=== PATIENT | female | born 1975 | race Two or more races ===

== ENCOUNTER 2018-05-23 16:05 | Emergency (ER) | payer OTHER ==
[~2018-05-23] VITALS: Ht 160 cm; Wt 104.3 kg
[2018-05-23] MEDS ORDERED: IV NORMAL SALINE 1000ML BAG 1,000 ML IV ONE (16:45)
[2018-05-23] MEDS ORDERED: METOCLOPRAMIDE HCL 10 MG/2 ML VIAL. IV ONE (16:45)
[2018-05-23] MEDS ORDERED: diphenhydrAMINE 50 MG/ML VIAL IVP ONE ×2 (16:45→17:45)
--- NOTE | 2018-05-23 16:54 | PHYS DOC ---
Past Medical History Past Medical History: No Pertinent History Past Surgical History: No Surgical History Alcohol Use: None Drug Use: None Adult General Chief Complaint Chief Complaint: HEADACHE HPI HPI 42-year-old female presents to ER via POV with complaints of sudden onset of headache located in forehead and top of head. Pt reports pain has been gradually worsening since onset. Pt reports she had 1 episode of vomiting when pain worsened. Pt currently rates pain at 10/10 denying any OTC meds prior to arrival to ER. Pt reports she was cleaning when QUINTANILLA started denying being in an enclosed area or using bleach products. Pt denies injury, falls, or recent illness. Pt reports she has had some eye pain denying dizziness, lightheadedness , or confusion. Pt reports she had some pressure in her ears denies pain. Pt denies floaters/auras. Pt denies past hx of headaches. Pt reports she ate breakfast but no other food intake today. She reports her appetite has been NL. She denies urinary sxs, fever/chills, CP, or palpitations. Pt reports she will occasionally take aspirin 325mg for pain but doesn't take everyday and denies taking today. LMP ended last Tuesday denies concerns for . Review of Systems Review of Systems Constitutional: Denies fever or chills. Denies confusion Eyes: Denies change in visual acuity, redness HENT: Denies nasal congestion or sore throat. Reports bilat. eye pain when they are opened- pain eases with closing eyes. Denies photosensitivity. Reports bilat. ear pressure Respiratory: Denies cough or shortness of breath [] Cardiovascular: Denies CP/palpitations GI: Denies abdominal pain, bloody stools or diarrhea. Reports intermittent nausea w/increased pain and 1 episode of vomiting : Denies dysuria or hematuria [] Musculoskeletal: Denies back pain or joint pain [] Integument: Denies rash or skin lesions [] Neurologic: Denies focal weakness or sensory changes. Denies dizziness/ lightheadedness. Reports headache All other systems were reviewed and found to be within normal limits, except as documented in this note. Current Medications Current Medications Current Medications Medications (Trade) Dose Ordered Sig/Gina Start Time Stop Time Status Last Admin Dose Admin Acetaminophen (Tylenol) 1,000 mg 1X ONCE 05/23/18 18:15 9/25/18 18:16 DC 05/23/18 18:26 1,000 MG Diphenhydramine HCl (Benadryl) 12.5 mg 1X ONCE 05/23/18 17:45 05/23/18 17:47 DC 05/23/18 18:26 12.5 MG Info (CONTRAST GIVEN -- Rx MONITORING) 1 each PRN DAILY PRN 05/23/18 19:15 05/23/18 21:52 DC Iohexol (Omnipaque 300 Mg/ml) 100 ml 1X ONCE 05/23/18 19:15 05/23/18 19:16 DC 05/23/18 19:27 100 ML Lidocaine HCl (Xylocaine-Mpf 1% 2ml Vial) 6 ml 1X ONCE 05/23/18 18:15 05/23/18 18:16 DC Metoclopramide HCl (Reglan Vial) 10 mg 1X ONCE 05/23/18 16:45 05/23/18 16:46 DC 05/23/18 17:13 10 MG Sodium Chloride 1,000 ml @ 1,000 mls/hr 1X ONCE 05/23/18 16:45 05/23/18 17:44 DC 05/23/18 17:13 1,000 MLS/HR Allergies Allergies Allergies Coded Allergies Type Severity Reaction Last Updated Verified Penicillins Allergy Intermediate Unknown 05/23/18 Yes Physical Exam Physical Exam Constitutional: Well developed, well nourished, no acute distress, non-toxic appearance. Clear speech HENT: Normocephalic, atraumatic, bilateral ears normal, mucous membranes pink/ moist, no oral exudates, nose normal. [] Eyes: 3mm PERRLA, EOMI- no pain with eye movement, no nystagmus, conjunctiva normal, no discharge. [] Neck: Normal range of motion, no tenderness, supple, no gross adenopathy. No nuchal rigidity. Cardiovascular:Heart tachycardic rate/rhythm, no murmur [] Lungs & Thorax: Bilateral breath sounds clear to auscultation. Resp. equal/ nonlabored Abdomen: Bowel sounds normal, soft/nondistended, no tenderness, no masses, no pulsatile masses. [] Skin: Warm, dry, no erythema, no rash. [] Back: No tenderness, no CVA tenderness. [] Extremities: No tenderness, no cyanosis, no clubbing, ROM intact, no edema. [] Neurologic: Alert and oriented X 3, normal motor function, normal sensory function, no focal deficits noted. [] Psychologic: Affect normal, judgement normal, mood normal. [] 1920: rectal exam done for occult specimen- no gross blood on exam, skin NL, no external/internal hemorrhoids, +rectal tone Current Patient Data Vital Signs Vital Signs Date Time Temp Pulse Resp B/P (MAP) Pulse Ox O2 Delivery O2 Flow Rate FiO2 05/23/18 21:00 97 20 97 05/23/18 16:07 98.9 188/111 (136) Room Air 98.9 Lab Values Laboratory Tests Test 05/23/18 16:50 05/23/18 16:55 05/23/18 17:00 05/23/18 20:00 Urine Collection Type Unknown Urine Color Yellow Urine Clarity Clear Urine pH 5.5 Urine Specific [place] 1.020 Urine Protein 30 mg/dL (NEG-TRACE) Urine Glucose (UA) Negative mg/dL (NEG) Urine Ketones (Stick) Trace mg/dL (NEG) Urine Blood Negative (NEG) Urine Nitrite Negative (NEG) Urine Bilirubin Negative (NEG) Urine Urobilinogen Dipstick 0.2 mg/dL (0.2 mg/dL) Urine Leukocyte Esterase Moderate (NEG) Urine RBC 0 /HPF (0-2) Urine WBC 1-4 /HPF (0-4) Urine Squamous Epithelial Cells Mod /LPF Urine Bacteria Moderate /HPF (0-FEW) POC Urine HCG, Qualitative Hcg negative (Negative) White Blood Count 12.9 x10^3/uL (4.0-11.0) H Red Blood Count 5.61 x10^6/uL (3.50-5.40) H Hemoglobin 7.5 g/dL (12.0-15.5) L Hematocrit 27.3 % (36.0-47.0) L Mean Corpuscular Volume 49 fL (79-100) L Mean Corpuscular Hemoglobin 13 pg (25-35) L Mean Corpuscular Hemoglobin Concent 27 g/dL (31-37) L Red Cell Distribution Width 22.8 % (11.5-14.5) H Platelet Count 375 x10^3/uL (140-400) Neutrophils (%) (Auto) 85 % (31-73) H Lymphocytes (%) (Auto) 11 % (24-48) L Monocytes (%) (Auto) 3 % (0-9) Eosinophils (%) (Auto) 0 % (0-3) Basophils (%) (Auto) 1 % (0-3) Neutrophils # (Auto) 10.9 x10^3uL (1.8-7.7) H Lymphocytes # (Auto) 1.5 x10^3/uL (1.0-4.8) Monocytes # (Auto) 0.4 x10^3/uL (0.0-1.1) Eosinophils # (Auto) 0.0 x10^3/uL (0.0-0.7) Basophils # (Auto) 0.1 x10^3/uL (0.0-0.2) Platelet Estimate Adequate (ADEQUATE) Hypochromasia Marked Poikilocytosis Slight Anisocytosis Mod Microcytosis Marked Tear Drop Cells Occ Ovalocytes Few Schistocytes Occ Sodium Level 137 mmol/L (136-145) Potassium Level 3.3 mmol/L (3.5-5.1) L Chloride Level 103 mmol/L (98-107) Carbon Dioxide Level 24 mmol/L (21-32) Anion Gap 10 (6-14) Blood Urea Nitrogen 10 mg/dL (7-20) Creatinine 0.9 mg/dL (0.6-1.0) Estimated GFR (Cockcroft-Gault) 69.0 Glucose Level 104 mg/dL (70-99) H Calcium Level 8.9 mg/dL (8.5-10.1) Stool Occult Blood Negative (NEG) Laboratory Tests 05/23/18 17:00 Laboratory Tests 05/23/18 17:00 Microbiology 05/23/18 Urine Culture - Final, Complete 05/23/18 Urine Culture Result 1 (JUNG) - Final, Complete EKG EKG [] Radiology/Procedures Radiology/Procedures PROCEDURE: CT HEAD WO CONTRAST Exam performed: CT scan of the head without contrast. Date of Service: 05/23/2018. Comparison: None available. Clinical History: Headache. Technique: Helical acquisitions are obtained from the foramen magnum to the vertex without intravenous administration of contrast. Findings: The ventricles are midline without evidence of dilatation. Normal duvall-white differentiation is maintained. There is no extra axial fluid collection, intraparenchymal hemorrhage or mass lesion. The visualized portions of the orbits, paranasal sinuses and the mastoid air cells appear clear. The calvarium is intact. Impression: 1. No acute intracranial process detected. PQRS Compliance Statement: One or more of the following individualized dose reduction techniques were utilized for this examination: 1. Automated exposure control 2. Adjustment of the mA and/or kV according to patient size 3. Use of iterative reconstruction technique Electronically signed by: Madiha Katz MD (05/23/2018 5:40 PM) [facility] DICTATED and SIGNED BY: MADIHA KATZ MD DATE: 05/23/18 1739 PROCEDURE: CT ANGIOGRAPHY HEAD AND NECK CTA of neck and CTA [place] dated 05/19/2018. Comparison: [CT head without contrast from earlier today] Clinical Indication: Headache, suspected aneurysm. Technical factors: Routine CTA of the neck and [place] was performed after the bolus administration of 75 cc of Omnipaque 300. Sagittal and coronal MIP images were obtained and reviewed. Study was post processed at a reformatted 3-D workstation. Findings: The contrast bolus is adequate. Aortic Arch: The aortic arch anatomy is standard. Left subclavian artery: [Normal origin and course]. Left vertebral artery:: [Normal origin from the left subclavian artery with normal intraforaminal and intradural course]. Left carotid artery: [Normal origin from the aortic arch. Normal common carotid artery bifurcation and normal internal carotid artery] Innominate artery: [Normal origin from the aortic arch with bifurcation into right subclavian and right common carotid artery]. Right subclavian artery:: [Normal course and caliber, no focal stenosis or aneurysm]. Right vertebral artery: [Normal origin from the right subclavian artery with normal intraforaminal and intravertebral course]. Right Carotid Artery: [Normal origin and course, normal carotid bifurcation, internal carotid artery appears normal in course and caliber. No focal stenosis]. [place]: [Both distal internal carotid arteries and its bifurcation appears normal. Normal A1 and M1 segments are seen. No focal stenosis or aneurysm are identified. Dominant right vertebral artery. The left vertebral artery appears to taper after its intradural course and gives off trajectories. The right vertebral artery continues as the basilar artery. Normal basilar artery bifurcation into bilateral posterior cerebral arteries. No focal stenosis or aneurysm seen. Bilateral posterior communicating arteries are normal. No abnormal enhancing lesion is seen in the brain. The orbits appear normal. Mucoperiosteal thickening involving bilateral maxillary sinuses. No definite abnormality seen within the soft tissues of the neck. No masses or lymphadenopathy seen. The lung apices are clear Impression CTA Neck: [Essentially unremarkable CT angiogram of the carotids. Anatomical variations as outlined above. ] Impression CTA [place]: [1. Essentially unremarkable CT angiogram [place]. Note: Stenosis calculations for CT, MR and conventional angiography are based upon determination of the distal ICA diameter in accordance with the NASCET methodology. Stenosis calculations for doppler studies are derived from validated velocity criteria which are known to correlate with NASCET methodology of determining stenosis. RS Compliance Statement: One or more of the following individualized dose reduction techniques were utilized for this examination: 1. Automated exposure control 2. Adjustment of the mA and/or kV according to patient size 3. Use of iterative reconstruction technique Electronically signed by: Madiha Katz MD (05/23/2018 7:53 PM) [facility] DICTATED and SIGNED BY: MADIHA KATZ MD DATE: 05/23/181924 Course & Med Decision Making Course & Med Decision Making Pertinent Labs and Imaging studies reviewed. (See chart for details) 1735: Pt reports some improvement in headache following txs received. She remains A&Ox3 with no focal neuro deficits and in no visible distress on re- eval. BP 158/79 HR 98. Labs/CT pending 1809: discussed pt's case with Dr. Preciado who is in to evaluate pt. 18:20 Patient seen by me. The patient stated she had sudden onset today At 1400 hrs. at 10/10 severity no photophobia and neck pain. She received head CT scan imaging 3 hours and 20 minutes after onset headache which was normal. Currently headache is 7/10 severity she has no nuchal rigidity she appears in no distress no photophobia and no weakness or numbness. 18:24 The case was discussed with Dr. Gonzalez who recommends CTA head and neck to rule out aneurysm. If negative patient can be followed as an outpatient. 1832: BP 147/70 HR 98 pt is in no visible distress remains A&Ox3 without focal neuro deficits. She reports headache has improved- continues to deny neck pain/ stiffness. 1920: with translation phone discussed test results with pt- head CT/CTA neg. for acute findings- pt had H&H of 7.5/37.3 so discussed plans for iron and need for f/u with PCP to re-eval levels. Pt had WBCs 12.9 no left shift possibly d/t stress. Other labs unremarkable. UA with trace ketones neg. nitrates/blood and moderate leuks with 1-4 WBCs on micro with moderate bacteria. HCG neg. 2045: Discussed pt's case and plan of care with Dr. Preciado who reviewed pt's case and imaging. Pt will be discharged home with Rx for iron with education on anemia and need for f/u for re-evaluation. Pt advised on need for f/u with PCP and neurology in next 2-3 days for re-evaluation sooner with any concerns. Provided pt with community clinics/physicians for f/u. At this time pt is in no visible distress she reports QUINTANILLA significantly improved. She denies dizziness, eye pain, nausea, or neck pain. Pt is sitting on side of bed and was ambulatory at bedside with steady gait- unassisted. Translation phone used for discussion on test results and plan of care/discharge plans. Dragon Disclaimer Dragon Disclaimer This electronic medical record was generated, in whole or in part, using a voice recognition dictation system. Departure Departure Impression: Primary Impression: Headache Additional Impression: Anemia Disposition: 01 HOME, SELF-CARE Condition: STABLE Referrals: NO PCP (PCP) Patient Instructions: Anemia, Nonspecific-Brief, General Headache Without Cause Additional Instructions: So the cause of your headache is unknown you should follow-up with neurology for re-evaluation in next 2-3 days. Your blood count was low and this will need to be rechecked by your primary doctor in next 3-5 days. You are being provided with a prescription for iron tablets- this can sometimes cause constipation. You can take over the counter Miralax as directed for stool softner. Drink plenty of water. Tylenol as needed for pain- avoid aspirin products. Your blood pressure was elevated initially and improved when your headache improved- you need to monitor your blood pressure and follow-up with primary doctor for re-evaluation. Scripts Ferrous Sulfate (FERROUS SULFATE) 325 Mg Tablet 1 TAB PO DAILY, #30 TAB 0 Refills Prov: MAYA CASTAÑEDA APRN 05/23/18 Attending Co-Sign Attending Co-Sign The patient was seen by me and interviewed as well as examined at the bedside. From my exam and gestalt of patient, I doubt SAH. Case discussed with Dr. Montero and resulting CTA head and neck was unremarkable. No evidence of aneurysm. The [facility] chart was reviewed. The case was discussed with the MLP. I agreed with the plan of care. Problem Qualifiers MAYA CASTAÑEDA APRN May 23, 2018 16:54 HECTOR PRECIADO MD May 23, 2018 18:27
[2018-05-23 17:28] LABS: BASO # 0.1 x10^3/uL (0.0-0.2); BASO % 1 % (0-3); EOS % 0 % (0-3); HEMATOCRIT 27.3 % (36.0-47.0); HEMOGLOBIN 7.5 g/dL (12.0-15.5); LYMPH # 1.5 x10^3/uL (1.0-4.8); LYMPH % 11 % (24-48); MEAN CORPUSCULAR HEMOGLOBIN 13 pg (25-35); MEAN CORPUSCULAR HGB CONC 27 g/dL (31-37); MEAN CORPUSCULAR VOLUME 49 fL (79-100); MONO # 0.4 x10^3/uL (0.0-1.1); MONO % 3 % (0-9); NEUT # 10.9 x10^3uL (1.8-7.7); NEUT % 85 % (31-73); PLATELET COUNT 375 x10^3/uL (140-400); RED BLOOD COUNT 5.61 x10^6/uL (3.50-5.40); RED CELL DISTRIBUTION WIDTH 22.8 % (11.5-14.5); WHITE BLOOD COUNT 12.9 x10^3/uL (4.0-11.0)
[2018-05-23 17:39] LABS: CALCIUM 8.9 mg/dL (8.5-10.1); CREATININE 0.9 mg/dL (0.6-1.0); POTASSIUM 3.3 mmol/L (3.5-5.1)
--- NOTE | 2018-05-23 17:44 | RAD ---
Exam performed: CT scan of the head without contrast. Date of Service: 05/23/2018. Comparison: None available. Clinical History: Headache. Technique: Helical acquisitions are obtained from the foramen magnum to the vertex without intravenous administration of contrast. Findings: The ventricles are midline without evidence of dilatation. Normal duvall-white differentiation is maintained. There is no extra axial fluid collection, intraparenchymal hemorrhage or mass lesion. The visualized portions of the orbits, paranasal sinuses and the mastoid air cells appear clear. The calvarium is intact. Impression: 1. No acute intracranial process detected. PQRS Compliance Statement: One or more of the following individualized dose reduction techniques were utilized for this examination: 1. Automated exposure control 2. Adjustment of the mA and/or kV according to patient size 3. Use of iterative reconstruction technique Electronically signed by: Madiha Katz MD (05/23/2018 5:40 PM) [facility]
[2018-05-23 17:57] LABS: HYPOCHROMIA MARKED; PLT ESTIMATE ADEQUATE (ADEQUATE)
[2018-05-23 17:58] LABS: ANISOCYTOSIS MOD; MICROCYTOSIS MARKED; OVALOCYTES FEW; POIKILOCYTOSIS SLIGHT; SCHISTOCYTES OCC; TEAR DROP CELLS OCC
[2018-05-23] MEDS ORDERED: ACETAMINOPHEN 500 MG TABLET PO ONE (18:15)
[2018-05-23] MEDS ORDERED: LIDOCAINE 1% PF 2 ML VIAL. INJ ONE (18:15)
[2018-05-23] MEDS ORDERED: CONTRAST GIVEN. MC PRN (19:15)
[2018-05-23] MEDS ORDERED: IOHEXOL 300 MG/ML 100ML VIAL. IV ONE (19:15)
--- NOTE | 2018-05-23 19:56 | RAD ---
CTA of neck and CTA [place] dated 05/19/2018. Comparison: [CT head without contrast from earlier today] Clinical Indication: Headache, suspected aneurysm. Technical factors: Routine CTA of the neck and [place] was performed after the bolus administration of 75 cc of Omnipaque 300. Sagittal and coronal MIP images were obtained and reviewed. Study was post processed at a reformatted 3-D workstation. Findings: The contrast bolus is adequate. Aortic Arch: The aortic arch anatomy is standard. Left subclavian artery: [Normal origin and course]. Left vertebral artery:: [Normal origin from the left subclavian artery with normal intraforaminal and intradural course]. Left carotid artery: [Normal origin from the aortic arch. Normal common carotid artery bifurcation and normal internal carotid artery] Innominate artery: [Normal origin from the aortic arch with bifurcation into right subclavian and right common carotid artery]. Right subclavian artery:: [Normal course and caliber, no focal stenosis or aneurysm]. Right vertebral artery: [Normal origin from the right subclavian artery with normal intraforaminal and intravertebral course]. Right Carotid Artery: [Normal origin and course, normal carotid bifurcation, internal carotid artery appears normal in course and caliber. No focal stenosis]. [place]: [Both distal internal carotid arteries and its bifurcation appears normal. Normal A1 and M1 segments are seen. No focal stenosis or aneurysm are identified. Dominant right vertebral artery. The left vertebral artery appears to taper after its intradural course and gives off trajectories. The right vertebral artery continues as the basilar artery. Normal basilar artery bifurcation into bilateral posterior cerebral arteries. No focal stenosis or aneurysm seen. Bilateral posterior communicating arteries are normal. No abnormal enhancing lesion is seen in the brain. The orbits appear normal. Mucoperiosteal thickening involving bilateral maxillary sinuses. No definite abnormality seen within the soft tissues of the neck. No masses or lymphadenopathy seen. The lung apices are clear Impression CTA Neck: [Essentially unremarkable CT angiogram of the carotids. Anatomical variations as outlined above. ] Impression CTA [place]: [1. Essentially unremarkable CT angiogram [place]. Note: Stenosis calculations for CT, MR and conventional angiography are based upon determination of the distal ICA diameter in accordance with the NASCET methodology. Stenosis calculations for doppler studies are derived from validated velocity criteria which are known to correlate with NASCET methodology of determining stenosis. PQRS Compliance Statement: One or more of the following individualized dose reduction techniques were utilized for this examination: 1. Automated exposure control 2. Adjustment of the mA and/or kV according to patient size 3. Use of iterative reconstruction technique Electronically signed by: Madiha Katz MD (05/23/2018 7:53 PM) [facility]
[2018-05-23 19:58] LABS: BILIRUBIN,URINE NEGATIVE (NEG); CLARITY,URINE CLEAR; COLOR,URINE YELLOW; NITRITE,URINE NEGATIVE (NEG); PH,URINE 5.5; PROTEIN,URINE 30 mg/dL (NEG-TRACE); UROBILINOGEN,URINE 0.2 mg/dL (0.2 mg/dL)
[2018-05-23 20:07] LABS: BACTERIA,URINE MODERATE /HPF (0-FEW); RBC,URINE 0 /HPF (0-2); SQUAMOUS EPITHELIAL CELL,UR MOD /LPF
[2018-05-23 20:28] LABS: FECAL OB PT NEGATIVE (NEG)
[2018-05-23 21:00] VITALS: BP 148/100
[2018-05-23] MEDS ORDERED: FERR325T14 PO (21:01)
== END 2018-05-23 21:52 | disposition home or self-care (01) ==
LOC: ER 16:05
DX: R51 Headache (principal); R11.2 Nausea with vomiting, unspecified; H57.13 Ocular pain, bilateral; Z88.0 Allergy status to penicillin
CPT/HCPCS: 36415; 70450; 70496; 70498; 80048; 81001; 81025; 82274; 85025; 87086; 96361; 96374; 96375; 96376; 99285; J1200; J2765; J7030; Q9967

== ENCOUNTER 2021-08-21 12:30 | Inpatient (IN) | payer MEDICAID, OTHER ==
[~2021-08-21] VITALS: Ht 162.6 cm; Wt 100.0 kg
[~2021-08-21 12:30] MED LIST: FERR325T14 PO
[2021-08-21] MEDS ORDERED: IV NORMAL SALINE 1000ML BAG 1,000 ML IV ONE (13:45)
[2021-08-21] MEDS ORDERED: ACETAMINOPHEN 500 MG TABLET PO ONE (13:45)
--- NOTE | 2021-08-21 13:47 | PHYS DOC ---
Past Medical History Past Medical History: No Pertinent History Past Surgical History: No Surgical History Smoking Status: Never Smoker Alcohol Use: None Drug Use: None General Adult EDM: Chief Complaint: COUGH HPI: HPI: Patient is a 45-year-old female presenting via POV for shortness of breath. Her and significant other present with generalized URI symptoms. Patient started several days after her significant others, approximately 10 days ago. Nothing known makes better or worse. She reports ongoing nasal congestion, rhinorrhea, dry nonproductive cough and chest pain that often radiates to her back. This is been ongoing and worsening since onset prompting her to come in for evaluation today. She states she has no known medical issues, no immunocompromising conditions, takes no medications specifically no blood thinners daily. She did not receive the COVID-19 vaccinations Review of Systems: Review of Systems: Fourteen body systems of review of systems have been reviewed. See HPI for pertinent positives and negative responses, other wolf all other systems are negative, non-pertinent or non-contributory Heart Score: C/O Chest Pain: No HEART Score for Chest Pain: HEART Score for Chest Pain Response (Comments) Value History Moderately Suspicious 1 ECG Nonspecific Repolarizatio 1 Age < 45 0 Risk Factors 1 or 2 Risk Factors 1 Troponin < Normal Limit 0 Total 3 Risk Factors: Risk Factors: DM, Current or recent (<one month) smoker, HTN, HLP, family history of CAD, obesity. Risk Scores: Score 0 - 3: 2.5% MACE over next 6 weeks - Discharge Home Score 4 - 6: 20.3% MACE over next 6 weeks - Admit for Clinical Observation Score 7 - 10: 72.7% MACE over next 6 weeks - Early Invasive Strategies Current Medications: Current Medications Medications (Trade) Dose Ordered Sig/Gina Start Time Stop Time Status Last Admin Dose Admin Acetaminophen (Tylenol) 1,000 mg 1X ONCE 08/21/21 13:45 08/21/21 13:46 Sodium Chloride 1,000 ml @ 1,000 mls/hr 1X ONCE 08/21/21 13:45 08/21/21 14:44 Allergies: Allergies: Allergies Coded Allergies Type Severity Reaction Last Updated Verified Penicillins Allergy Intermediate Unknown 05/23/18 Yes Physical Exam: PE: Constitutional: Well developed, well nourished, no acute distress, non-toxic appearance. HENT: Normocephalic, atraumatic, bilateral external ears normal, oropharynx moist, no oral exudates, nose normal. Eyes: PERRLA, EOMI, conjunctiva normal, no discharge. Neck: Normal range of motion, no tenderness, supple, no stridor. Cardiovascular: Heart rate regular, sinus rhythm, no murmurs rubs or gallops Lungs & Thorax: Bilateral breath sounds clear to auscultation Abdomen: Bowel sounds normal, soft, no tenderness, no masses, no pulsatile masses. Nonsurgical abdomen, no peritoneal signs Skin: Warm, dry, no erythema, no rash. Back: No tenderness, no CVA tenderness. Extremities: No tenderness, no cyanosis, no clubbing, ROM intact, no edema. Neurologic: Alert and oriented X 3, grossly normal motor & sensory function, no focal deficits noted. Psychologic: Affect normal, judgement normal, mood normal. Current Patient Data: Labs: Laboratory Tests Test 08/21/21 12:44 08/21/21 13:30 08/21/21 13:44 08/21/21 13:55 Maternal Serum HCG Beta Subunit < 1 mIU/mL Influenza Type A Antigen Negative Influenza Type B Antigen Negative SARS-CoV-2 Antigen (Rapid) Negative White Blood Count 11.6 x10^3/uL Red Blood Count 5.21 x10^6/uL Hemoglobin 12.8 g/dL Hematocrit 38.2 % Mean Corpuscular Volume 73 fL Mean Corpuscular Hemoglobin 25 pg Mean Corpuscular Hemoglobin Concent 34 g/dL Red Cell Distribution Width 17.6 % Platelet Count 234 x10^3/uL Neutrophils (%) (Auto) 95 % Lymphocytes (%) (Auto) 4 % Monocytes (%) (Auto) 2 % Eosinophils (%) (Auto) 0 % Basophils (%) (Auto) 0 % Neutrophils # (Auto) 11.0 x10^3/uL Lymphocytes # (Auto) 0.4 x10^3/uL Monocytes # (Auto) 0.2 x10^3/uL Eosinophils # (Auto) 0.0 x10^3/uL Basophils # (Auto) 0.0 x10^3/uL Segmented Neutrophils % 84 % Band Neutrophils % 10 % Lymphocytes % 5 % Monocytes % 1 % Platelet Estimate Adequate Sodium Level 139 mmol/L Potassium Level 3.6 mmol/L Chloride Level 100 mmol/L Carbon Dioxide Level 28 mmol/L Anion Gap 11 Blood Urea Nitrogen 16 mg/dL Creatinine 1.0 mg/dL Estimated GFR (Cockcroft-Gault) 60.2 BUN/Creatinine Ratio 16 Glucose Level 126 mg/dL Lactic Acid Level 1.4 mmol/L Calcium Level 7.7 mg/dL Total Bilirubin 0.9 mg/dL Aspartate Amino Transf (AST/SGOT) 134 U/L Alanine Aminotransferase (ALT/SGPT) 35 U/L Alkaline Phosphatase 69 U/L Troponin I High Sensitivity 48 ng/L RN-Uop-T-Type Natriuretic Peptide 125 pg/mL Total Protein 7.0 g/dL Albumin 2.8 g/dL Albumin/Globulin Ratio 0.7 O2 Saturation 94 % Arterial Blood pH 7.59 Arterial Blood pCO2 at Patient Temp 28 mmHg Arterial Blood pO2 at Patient Temp 65 mmHg Arterial Blood HCO3 26 mmol/L Arterial Blood Base Excess 5 mmol/L Oxyhemoglobin 93.3 % Methemoglobin 0.3 % Carbon Monoxide, Quantitative 0.3 % FiO2 21 Test 08/21/21 15:41 Prothrombin Time 19.0 SEC Prothromb Time International Ratio 1.6 Activated Partial Thromboplast Time 34 SEC Current Medications Medications (Trade) Dose Ordered Sig/Gina Route PRN Reason Start Time Stop Time Status Last Admin Dose Admin Acetaminophen (Tylenol) 1,000 mg 1X ONCE PO 08/21/21 13:45 08/21/21 13:46 DC 08/21/21 13:54 Sodium Chloride 1,000 ml @ 1,000 mls/hr 1X ONCE IV 08/21/21 13:45 08/21/21 14:44 DC 08/21/21 13:56 Aspirin (Aspirin Chewable) 324 mg 1X ONCE PO 08/21/21 14:00 08/21/21 14:01 DC 08/21/21 13:54 Iohexol (Omnipaque 350 Mg/ml) 100 ml 1X ONCE IV 08/21/21 14:45 08/21/21 14:46 DC 08/21/21 16:20 Info (CONTRAST GIVEN -- Rx MONITORING) 1 each PRN DAILY PRN MC SEE COMMENTS 08/21/21 14:45 08/23/21 14:44 Vital Signs: Vital Signs Date Time Temp Pulse Resp B/P (MAP) Pulse Ox O2 Delivery O2 Flow Rate FiO2 08/21/21 13:35 102.8 142 24 199/127 (151) 89 Room Air 102.8 Vital Signs Date Time Temp Pulse Resp B/P (MAP) Pulse Ox O2 Delivery O2 Flow Rate FiO2 08/21/21 13:35 102.8 142 24 199/127 (151) 89 Room Air 102.8 EKG: EKG: EKG ordered and interpreted by myself 1340 hrs. is sinus tachycardia at 138 bpm, unremarkable intervals, left axis deviation, no acute ischemic findings, no STEMI Radiology/Procedures: Radiology/Procedures: XR CHEST 1V History: Shortness of breath. Comparison: None. Technique: Portable AP radiograph of the chest. Findings: The lungs are adequately inflated. There are moderate diffuse bilateral airspace opacity. No pneumothorax. The cardiac silhouette is partially obscured and as is the pulmonary vasculature. Soft tissues and osseous structures are unremarkable. Impression: 1. Moderate diffuse bilateral airspace opacity may represent multifocal in fection or pulmonary edema. Electronically signed by: Alcon Da Silva MD (08/21/2021 2:22 PM) [facility] Course & Med Decision Making: Course & Med Decision Making Airway patent, increased work of breathing, IV access and vitals obtained concerning for fever, hypoxia, tachycardia, hypertension and tachypnea HPI, physical exam and comprehensive ER work-up obtained concerning for likely infectious respiratory process/pneumonia versus less likely fluid overload from other condition. She is unvaccinated against COVID-19 with PCR pending. Significant other here with similar symptoms Patient requiring oxygen, appropriate IV antibiotics administered, IV fluid rehydration and subsequent weight-based Lovenox for PE prevention administered in a high risk individual I contacted hospitalist and discussed need for admission at length, patient accepted under the care of Dr. Narvaez. I updated patient on entirety of ER work-up, findings, and discussion with proposed plan of care for admission for which she was amenable Gerry Disclaimer: Gerry Disclaimer: This electronic medical record was generated, in whole or in part, using a voice recognition dictation system. Departure Departure Impression: Primary Impression: Sepsis due to pneumonia Additional Impression: Acute respiratory failure with hypoxia Disposition: ADMITTED INPATIENT Admitting Physician: GOVIND (dr narvaez) Condition: STABLE Referrals: NO PCP (PCP) ROBERTO JACOBSEN DO Aug 21, 2021 13:47
[2021-08-21 14:00] LABS: BASE EXCESS COOX 5 mmol/L (-3-3); HCO3 COOX 26 mmol/L (21-28); METHEMOGLOBIN 0.3 % (0.0-1.9); OXYHEMOGLOBIN 93.3 %; PCO2 COOX 28 mmHg (35-46); PO2 COOX 65 mmHg (75-108); SAT O2 COOX 94 % (92-99)
[2021-08-21] MEDS ORDERED: ASPIRIN CHEWABLE 81 MG TABLET. PO ONE (14:00)
[2021-08-21 14:07] LABS: BASO % 0 % (0-3); EOS % 0 % (0-3); HEMATOCRIT 38.2 % (36.0-47.0); HEMOGLOBIN 12.8 g/dL (12.0-15.5); LYMPH # 0.4 x10^3/uL (1.0-4.8); LYMPH % 4 % (24-48); MEAN CORPUSCULAR HEMOGLOBIN 25 pg (25-35); MEAN CORPUSCULAR HGB CONC 34 g/dL (31-37); MEAN CORPUSCULAR VOLUME 73 fL (79-100); MONO # 0.2 x10^3/uL (0.0-1.1); MONO % 2 % (0-9); NEUT % 95 % (31-73); PLATELET COUNT 234 x10^3/uL (140-400); RED BLOOD COUNT 5.21 x10^6/uL (3.50-5.40); RED CELL DISTRIBUTION WIDTH 17.6 % (11.5-14.5); WHITE BLOOD COUNT 11.6 x10^3/uL (4.0-11.0)
[2021-08-21 14:22] LABS: CALCIUM 7.7 mg/dL (8.5-10.1); GFR 60.2; POTASSIUM 3.6 mmol/L (3.5-5.1)
--- NOTE | 2021-08-21 14:24 | RAD ---
XR CHEST 1V History: Shortness of breath. Comparison: None. Technique: Portable AP radiograph of the chest. Findings: The lungs are adequately inflated. There are moderate diffuse bilateral airspace opacity. No pneumoth orax. The cardiac silhouette is partially obscured and as is the pulmonary vasculature. Soft tissues and osseous structures are unremarkable. Impression: 1. Moderate diffuse bilateral airspace opacity may represent multifocal infection or pulmonary edema . Electronically signed by: Alcon Da Silva MD (08/21/2021 2:22 PM) [facility]
[2021-08-21 14:27] LABS: ALBUMIN 2.8 g/dL (3.4-5.0); ALBUMIN/GLOBULIN RATIO 0.7 (1.0-1.7); TOTAL BILIRUBIN 0.9 mg/dL (0.2-1.0)
[2021-08-21] MEDS ORDERED: IOHEXOL 350 MG/ML 100 ML VIAL. IV ONE (14:45)
[2021-08-21] MEDS ORDERED: CONTRAST GIVEN. MC PRN (14:45)
[2021-08-21 15:24] LABS: INFLUENZA A PATIENT NEGATIVE (NEGATIVE); INFLUENZA B PATIENT NEGATIVE (NEGATIVE)
[2021-08-21 15:57] LABS: % BANDS 10 % (0-9); % LYMPHS 5 % (24-48); % MONOS 1 % (0-10); % SEGS 84 % (35-66)
[2021-08-21 15:58] LABS: PLT ESTIMATE ADEQUATE (ADEQUATE)
[2021-08-21] MEDS ORDERED: AZITHRMYCN 500MG IVPB FOR OMNI 250 ML IV ONE (16:30)
[2021-08-21] MEDS ORDERED: cefTRIAXone IV Push 1 GM VIAL. IVP ONE (16:30)
--- NOTE | 2021-08-21 16:39 | RAD ---
CTA CHEST dated 08/21/2021 4:07 PM Indication:Reason: SHOB, HYPOXIA / Spl. Instructions: OMNI 350 INJ,. 100 MLS / History: Comparison: No comparison is available. Technique: Helical thin section CT images were performed using an infusion of 100 mL Omnipaque 350. M IP reconstructions also were obtained. One or more of the following individualized dose reduction techniques were utilized for this examinat ion: 1. Automated exposure control 2. Adjustment of the mA and/or kV according to patient size 3. Use of iterative reconstruction technique Findings: There are extensive bilateral infiltrates, greater on the left in the upper lobe and on the right tow carmel the lung base. No pleural fluid is seen. The central airways show no obstruction. No enlarged lym ph nodes are seen. Evaluation of the pulmonary arterial tree shows relatively poor opacification of the vessels. No larg e central embolus is seen. Smaller peripheral emboli could be missed. Images through the upper abdomen show no acute abnormality. There may be some fatty infiltration of t he liver. IMPRESSION: Extensive bilateral pneumonia. Limited exam for pulmonary embolism evaluation. No large central embolus is seen. Vessel opacificatio n is relatively poor, and smaller emboli would be difficult to detect. Electronically signed by: Nixon Mccauley Jr., MD (08/21/2021 4:37 PM) [id number]
--- NOTE | 2021-08-21 16:46 | EKG ---
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
[2021-08-21] MEDS ORDERED: NITROGLYCERIN SUBLINGUAL 0.4 MG BOTTLE OF 25. SL PRN (17:00)
[2021-08-21] MEDS ORDERED: ACETAMINOPHEN 325 MG TABLET. PO PRN (17:00)
--- NOTE | 2021-08-21 18:50 | NUR ---
Pt brought to room 519 from ER. Pt on 3L/NC, placed on residential monitor, call light given to pt. Pt is khmer speaking only, will need to find system support technician phone to continue with admission information.
[2021-08-21] MEDS: cefTRIAXone IV Push 1 GM VIAL. IVP SCH (20:00)
--- NOTE | 2021-08-21 20:01 | HP ---
DATE OF SERVICE: 08/21/2021 ADMIT DATE: 08/21/2021 CHIEF COMPLAINT: Shortness of breath and cough. HISTORY OF PRESENT ILLNESS: The patient is a pleasant 45-year-old healthy lady who smokes. She has been at home with upper respiratory symptoms for about 10 days. Her boyfriend is also sick. He presented to the ER with her. Clinically, they appeared to have COVID-19, although surprisingly their initial testing is negative. Her boyfriend is being admitted. She is also being admitted. I have discussed the case with ER physician. We are going to start COVID protocol. PAST MEDICAL HISTORY: Tobacco abuse. ALLERGIES: PENICILLIN. FAMILY HISTORY: Diabetes. SOCIAL HISTORY: She smokes. No drink or drugs. She lives at home with her boyfriend. MEDICATIONS: Reviewed. Please refer to the MRAD. REVIEW OF SYSTEMS: GENERAL: No history of weight change, weakness or fevers. SKIN: No bruising, hair changes or rashes. EYES: No blurred, double or loss of vision. NOSE AND THROAT: No history of nosebleeds, hoarseness or sore throat. HEART: No history of palpitations, chest pain or shortness of breath on exertion. LUNGS: She complains of shortness of breath and cough. GASTROINTESTINAL: Denies changes in appetite, nausea, vomiting, diarrhea or constipation. GENITOURINARY: No history of frequency, urgency, hesitancy or nocturia. NEUROLOGIC: Denies history of numbness, tingling, tremor or weakness. PSYCHIATRIC: No history of panic, anxiety or depression. ENDOCRINE: No history of heat or cold intolerance, polyuria or polydipsia. EXTREMITIES: Denies muscle weakness, joint pain, pain on walking or stiffness. PHYSICAL EXAMINATION: VITALS: Within normal limits and are stable. GENERAL: No apparent distress. Alert and oriented. HEENT: Normal cephalic atraumatic, external auditory canals are patent. EYES: Extraocular muscles are intact, pupils are equally round and reactive to light and accommodation. MUSCULOSKELETAL: Well developed, well nourished, good range of motion. ENDOCRINE: No thyromegaly was palpated. LYMPHATICS: No cervical chain or axillary nodes were noted. HEMATOPOIETIC: No bruising. NECK: Supple, no JVD, no thyromegaly was noted. LUNGS: She has bibasilar crackles. HEART: RRR, S1, S2 present. Peripheral pulses intact, no obvious murmurs were noted. ABDOMEN: Soft, nontender. Positive bowel sounds no organomegaly, normal bowel sounds. EXTREMITIES: Without any cyanosis, clubbing, or edema. Pedal pulses intact, Homans sign is negative. NEUROLOGIC: Normal speech, normal tone. A and O x 3, moves all extremities, no obvious focal deficits. PSYCHIATRIC: Normal affect, normal mood. Stable. SKIN: No ulcerations or rashes, good skin turgor, no jaundice. VASCULAR: Good capillary refill, neurovascular bundle appears to be intact. LABORATORY DATA: COVID testing is negative. Flu testing is negative. White count is 12. Electrolytes are normal. INR is 1.6. ABG shows a pH of 7.59, pCO2 of 28, pO2 of 65, bicarbonate 26 with 94% sat that was on room air. test is negative. AST is little high at 134. Chest x-ray shows moderate diffuse bilateral airspace opacities, may represent multifocal infection or pulmonary edema. ASSESSMENT AND PLAN: Respiratory failure. I suspect she has COVID-19, but at this point, the test is not confirmed. We are awaiting the PCR. We will go ahead and start IV antibiotics, oxygen, vitamins and minerals, beta agonist, codeine cough syrup, aspirin, Lovenox, home meds, DVT prophylaxis, full code, respiratory isolation. Await our COVID PCR test. Prognosis guarded. Coagulopathy. ELROY COLEMAN: Karla TID: [id number]
[2021-08-21] MEDS: methylPREDNISolone SOD SUCC PF 40 MG/ML VIAL. IV SCH (22:37)
[2021-08-21] MEDS: DOXYCYCLINE HYCLATE 100 MG in IV DEXTROSE 5% 100ML 100 ML IV SCH (22:38)
--- NOTE | 2021-08-21 23:00 | NUR ---
NURSING NOTE Pt ambulated to bathroom with assist, then back to bed. Oxygen level checked on RA to be 85%. Pt placed back on her 3L/NC, oxygen level up to 96%. Business Asst phone used to complete admission questions. Pt denies any medical history except HTN, denies any surgical history, denies taking any scheduled daily medications, only using tylenol and ibuprofen for fever/body aches. POC explained to pt, pt basilia. Pt has fever of 101.4, tylenol given.
[2021-08-21 23:33] VITALS: BP 167/92
[2021-08-21] MEDS ORDERED: ACET325T9 PO (23:50)
[2021-08-21] MEDS ORDERED: IBUP200T77 PO (23:50)
[2021-08-22 03:00] VITALS: BP 151/88
[2021-08-22 06:31] LABS: BASO % 0 % (0-3); EOS % 0 % (0-3); HEMATOCRIT 35.1 % (36.0-47.0); HEMOGLOBIN 11.7 g/dL (12.0-15.5); LYMPH # 0.3 x10^3/uL (1.0-4.8); LYMPH % 3 % (24-48); MEAN CORPUSCULAR HEMOGLOBIN 26 pg (25-35); MEAN CORPUSCULAR HGB CONC 33 g/dL (31-37); MEAN CORPUSCULAR VOLUME 77 fL (79-100); MONO # 0.1 x10^3/uL (0.0-1.1); MONO % 1 % (0-9); NEUT # 8.9 x10^3/uL (1.8-7.7); NEUT % 95 % (31-73); PLATELET COUNT 222 x10^3/uL (140-400); RED BLOOD COUNT 4.58 x10^6/uL (3.50-5.40); RED CELL DISTRIBUTION WIDTH 17.2 % (11.5-14.5); WHITE BLOOD COUNT 9.4 x10^3/uL (4.0-11.0)
[2021-08-22 07:00] VITALS: BP 154/94
[2021-08-22 07:16] LABS: CALCIUM 7.9 mg/dL (8.5-10.1); CREATININE 0.7 mg/dL (0.6-1.0); GFR 90.9; POTASSIUM 3.8 mmol/L (3.5-5.1)
[2021-08-22] MEDS ORDERED: FLU VACC QUAD 21-22 (6MOS+) PF 0.5 ML SYRINGE. VAX IM ONE (09:00)
[2021-08-22] MEDS: methylPREDNISolone SOD SUCC PF 40 MG/ML VIAL. IV SCH ×2 (09:18→20:43)
[2021-08-22] MEDS: ASPIRIN CHEWABLE 81 MG TABLET. PO SCH (09:18)
[2021-08-22] MEDS: DOXYCYCLINE HYCLATE 100 MG in IV DEXTROSE 5% 100ML 100 ML IV SCH ×2 (09:27→20:44)
[2021-08-22 11:00] VITALS: BP 153/85
--- NOTE | 2021-08-22 11:09 | PDOC ---
[employer] PROGRESS NOTE Date of Service DOS: DATE: 08/22/21 TIME: 11:07 Chief Complaint Chief Complaint acute Respiratory failure. acute COVID-19 infection with weakness, and cough obese, BMI 38 History of Present Illness History of Present Illness cont covid protocol, she is welsh speakign and didnt understand to ask for the robitussin/codeine, plan discussed, added anti-tussive x1, asked her to sit in chair and ambulate in room may be able to DCsoon Vitals/I&O Vitals/I&O: Vital Signs Date Time Temp Pulse Resp B/P (MAP) Pulse Ox O2 Delivery O2 Flow Rate FiO2 08/22/21 07:00 99.0 97 18 154/94 (114) 96 Nasal Cannula 2.5 99.0 I & O 08/21/21 08/21/21 08/22/21 15:00 23:00 07:00 Intake Total 250 ml 240 ml Balance 250 ml 240 ml Physical Exam General: Alert, Oriented X3, Cooperative, mild distress Heart: Normal S1 Lungs: Clear, Other (low vol, cough) Abdomen: Normal bowel sounds Extremities: No clubbing, No cyanosis Skin: No rashes Labs Labs: Laboratory Tests Test 08/21/21 12:44 08/21/21 13:30 08/21/21 13:44 08/21/21 13:55 Maternal Serum HCG Beta Subunit < 1 mIU/mL (0-5) Influenza Type A Antigen Negative (NEGATIVE) Influenza Type B Antigen Negative (NEGATIVE) SARS-CoV-2 Antigen (Rapid) Negative (NEGATIVE) White Blood Count 11.6 x10^3/uL (4.0-11.0) Red Blood Count 5.21 x10^6/uL (3.50-5.40) Hemoglobin 12.8 g/dL (12.0-15.5) Hematocrit 38.2 % (36.0-47.0) Mean Corpuscular Volume 73 fL (79-100) Mean Corpuscular Hemoglobin 25 pg (25-35) Mean Corpuscular Hemoglobin Concent 34 g/dL (31-37) Red Cell Distribution Width 17.6 % (11.5-14.5) Platelet Count 234 x10^3/uL (140-400) Neutrophils (%) (Auto) 95 % (31-73) Lymphocytes (%) (Auto) 4 % (24-48) Monocytes (%) (Auto) 2 % (0-9) Eosinophils (%) (Auto) 0 % (0-3) Basophils (%) (Auto) 0 % (0-3) Neutrophils # (Auto) 11.0 x10^3/uL (1.8-7.7) Lymphocytes # (Auto) 0.4 x10^3/uL (1.0-4.8) Monocytes # (Auto) 0.2 x10^3/uL (0.0-1.1) Eosinophils # (Auto) 0.0 x10^3/uL (0.0-0.7) Basophils # (Auto) 0.0 x10^3/uL (0.0-0.2) Segmented Neutrophils % 84 % (35-66) Band Neutrophils % 10 % (0-9) Lymphocytes % 5 % (24-48) Monocytes % 1 % (0-10) Platelet Estimate Adequate (ADEQUATE) Sodium Level 139 mmol/L (136-145) Potassium Level 3.6 mmol/L (3.5-5.1) Chloride Level 100 mmol/L (98-107) Carbon Dioxide Level 28 mmol/L (21-32) Anion Gap 11 (6-14) Blood Urea Nitrogen 16 mg/dL (7-20) Creatinine 1.0 mg/dL (0.6-1.0) Estimated GFR (Cockcroft-Gault) 60.2 BUN/Creatinine Ratio 16 (6-20) Glucose Level 126 mg/dL (70-99) Lactic Acid Level 1.4 mmol/L (0.4-2.0) Calcium Level 7.7 mg/dL (8.5-10.1) Total Bilirubin 0.9 mg/dL (0.2-1.0) Aspartate Amino Transf (AST/SGOT) 134 U/L (15-37) Alanine Aminotransferase (ALT/SGPT) 35 U/L (14-59) Alkaline Phosphatase 69 U/L (46-116) Troponin I High Sensitivity 48 ng/L (4-50) TT-Lal-N-Type Natriuretic Peptide 125 pg/mL (0-124) Total Protein 7.0 g/dL (6.4-8.2) Albumin 2.8 g/dL (3.4-5.0) Albumin/Globulin Ratio 0.7 (1.0-1.7) O2 Saturation 94 % (92-99) Arterial Blood pH 7.59 (7.35-7.45) Arterial Blood pCO2 at Patient Temp 28 mmHg (35-46) Arterial Blood pO2 at Patient Temp 65 mmHg (75-108) Arterial Blood HCO3 26 mmol/L (21-28) Arterial Blood Base Excess 5 mmol/L (-3-3) Oxyhemoglobin 93.3 % Methemoglobin 0.3 % (0.0-1.9) Carbon Monoxide, Quantitative 0.3 % (0.0-1.9) FiO2 21 Test 08/21/21 14:16 08/21/21 15:41 08/22/21 05:00 SARS-CoV-2 RNA (ESTELLA) Positive (Negative) Prothrombin Time 19.0 SEC (11.7-14.0) Prothromb Time International Ratio 1.6 (0.8-1.1) Activated Partial Thromboplast Time 34 SEC (24-38) White Blood Count 9.4 x10^3/uL (4.0-11.0) Red Blood Count 4.58 x10^6/uL (3.50-5.40) Hemoglobin 11.7 g/dL (12.0-15.5) Hematocrit 35.1 % (36.0-47.0) Mean Corpuscular Volume 77 fL (79-100) Mean Corpuscular Hemoglobin 26 pg (25-35) Mean Corpuscular Hemoglobin Concent 33 g/dL (31-37) Red Cell Distribution Width 17.2 % (11.5-14.5) Platelet Count 222 x10^3/uL (140-400) Neutrophils (%) (Auto) 95 % (31-73) Lymphocytes (%) (Auto) 3 % (24-48) Monocytes (%) (Auto) 1 % (0-9) Eosinophils (%) (Auto) 0 % (0-3) Basophils (%) (Auto) 0 % (0-3) Neutrophils # (Auto) 8.9 x10^3/uL (1.8-7.7) Lymphocytes # (Auto) 0.3 x10^3/uL (1.0-4.8) Monocytes # (Auto) 0.1 x10^3/uL (0.0-1.1) Eosinophils # (Auto) 0.0 x10^3/uL (0.0-0.7) Basophils # (Auto) 0.0 x10^3/uL (0.0-0.2) Sodium Level 141 mmol/L (136-145) Potassium Level 3.8 mmol/L (3.5-5.1) Chloride Level 104 mmol/L (98-107) Carbon Dioxide Level 26 mmol/L (21-32) Anion Gap 11 (6-14) Blood Urea Nitrogen 13 mg/dL (7-20) Creatinine 0.7 mg/dL (0.6-1.0) Estimated GFR (Cockcroft-Gault) 90.9 Glucose Level 130 mg/dL (70-99) Calcium Level 7.9 mg/dL (8.5-10.1) Review of Systems Review of Systems: cough, weaknaess, myalgia Assessment and Plan Assessmemt and Plan Problems Medical Problems: (1) Acute respiratory failure with hypoxia Status: Acute (2) Cough Status: Acute (3) Sepsis due to pneumonia Status: Acute Comment Review of Relevant I have reviewed the following items alta (where applicable) has been applied. Medications: Current Medications Medications (Trade) Dose Ordered Sig/Gina Route PRN Reason Start Time Stop Time Status Last Admin Dose Admin Acetaminophen (Tylenol) 1,000 mg 1X ONCE PO 08/21/21 13:45 08/21/21 13:46 DC 08/21/21 13:54 Sodium Chloride 1,000 ml @ 1,000 mls/hr 1X ONCE IV 08/21/21 13:45 08/21/21 14:44 DC 08/21/21 13:56 Aspirin (Aspirin Chewable) 324 mg 1X ONCE PO 08/21/21 14:00 08/21/21 14:01 DC 08/21/21 13:54 Iohexol (Omnipaque 350 Mg/ml) 100 ml 1X ONCE IV 08/21/21 14:45 08/21/21 14:46 DC 08/21/21 16:20 Ceftriaxone Sodium (Rocephin) 1 gm 1X ONCE IVP 08/21/21 16:30 08/21/21 16:31 DC 08/21/21 18:33 Azithromycin 250 ml @ 250 mls/hr 1X ONCE IV 08/21/21 16:30 08/21/21 17:29 DC 08/21/21 18:33 Enoxaparin Sodium (Lovenox 100mg Syringe) 100 mg 1X ONCE SQ 08/21/21 17:00 08/21/21 17:01 DC 08/21/21 18:35 Acetaminophen (Tylenol) 650 mg PRN Q4HRS PRN PO FEVER > 100.3'F 08/21/21 17:00 08/22/21 16:59 08/21/21 22:37 Doxycycline Hyclate 100 mg/ Dextrose 100 ml @ 50 mls/hr Q12HR IV 08/21/21 20:00 08/22/21 09:27 Methylprednisolone Sodium Succinate (SOLU-Medrol 40MG VIAL) 40 mg BID IV 08/21/21 20:00 08/22/21 09:18 Aspirin (Aspirin Chewable) 81 mg [id number] PO 08/22/21 08:00 08/22/21 09:18 Influenza Virus Vaccine Quadrival (Flulaval Quad Syringe) 0.5 ml ONCE ONCE VAX IM 08/22/21 09:00 08/22/21 09:01 DC 08/22/21 09:20 Justifications for Admission Other Justification RBADLY HOWARD MD Aug 22, 2021 11:09
[2021-08-22] MEDS ORDERED: guaiFENesin/CODEINE 100mg/10mg 5 ML LIQUID PO ONE (11:15)
[2021-08-22] MEDS ORDERED: IV NORMAL SALINE 1000ML BAG 1,000 ML IV ONE (11:15)
[2021-08-22] MEDS: ZINC SULFATE 220 MG CAPSULE. PO SCH (11:23)
[2021-08-22 15:00] VITALS: BP 167/97
[2021-08-22 19:00] VITALS: BP 171/94
[2021-08-22] MEDS: guaiFENesin/CODEINE 100mg/10mg 5 ML LIQUID PO PRN (19:28)
[2021-08-22] MEDS: cefTRIAXone IV Push 1 GM VIAL. IVP SCH (20:00)
[2021-08-22] MEDS: LACTOBACILLUS RHAMNOSUS GG 1 CAPSULE. PO SCH (20:43)
[2021-08-22 23:00] VITALS: BP 161/100
[2021-08-22] MEDS: IV NORMAL SALINE 1000ML BAG 1,000 ML IV SCH (23:00)
[2021-08-23 03:00] VITALS: BP 166/99
[2021-08-23 07:00] VITALS: BP 158/94
[2021-08-23] MEDS: guaiFENesin/CODEINE 100mg/10mg 5 ML LIQUID PO PRN ×2 (07:21→22:18)
--- NOTE | 2021-08-23 10:35 | PDOC ---
[employer] PROGRESS NOTE Date of Service DOS: DATE: 08/23/21 TIME: 10:34 Chief Complaint Chief Complaint acute hypoxic Respiratory failure. was outside 10 days for remdesivir on admit acute COVID-19 infection with weakness, and cough obese, BMI 38 sepsis, pneumonia, rocpehin and doxy, change from solumedrol to decadron today History of Present Illness History of Present Illness cont covid protocol, she is [place]rit[place] islander speakign and didnt understand to ask for the robitussin/codeine, plan discussed, added anti-tussive x1, asked her to sit in chair and ambulate in room may be able to DCsoon Vitals/I&O Vitals/I&O: Vital Signs Date Time Temp Pulse Resp B/P (MAP) Pulse Ox O2 Delivery O2 Flow Rate FiO2 08/23/21 07:00 97.8 93 18 158/94 (115) 93 97.8 08/22/21 19:20 Nasal Cannula 4.0 I & O 08/22/21 08/22/21 08/23/21 15:00 23:00 07:00 Intake Total 120 ml Balance 120 ml Physical Exam General: Alert, Oriented X3, Cooperative, mild distress Heart: Normal S1 Lungs: Clear, Other (low vol, cough) Abdomen: Normal bowel sounds Extremities: No clubbing, No cyanosis Skin: No rashes Review of Systems Review of Systems: cough, weakness Assessment and Plan Assessmemt and Plan Problems Medical Problems: (1) Acute respiratory failure with hypoxia Status: Acute (2) Cough Status: Acute (3) Sepsis due to pneumonia Status: Acute Comment Review of Relevant I have reviewed the following items alta (where applicable) has been applied. Medications: Current Medications Medications (Trade) Dose Ordered Sig/Gina Route PRN Reason Start Time Stop Time Status Last Admin Dose Admin Zinc Sulfate (Orazinc) 220 mg DAILY PO 08/22/21 11:00 08/22/21 11:23 Sodium Chloride 1,000 ml @ 100 mls/hr 1X ONCE IV 08/22/21 11:15 08/22/21 21:14 DC 08/22/21 11:18 Guaifenesin/ Codeine Phosphate (Robitussin Ac) 5 ml 1X ONCE PO 08/22/21 11:15 08/22/21 11:20 DC 08/22/21 11:20 Lactobacillus Rhamnosus (Culturelle) 1 cap BID PO 08/22/21 21:00 08/22/21 20:43 Sodium Chloride 1,000 ml @ 100 mls/hr Q10H IV 08/22/21 23:00 08/22/21 23:00 Justifications for Admission Other Justification BRADLY HOWARD MD Aug 23, 2021 10:35
[2021-08-23] MEDS: ASPIRIN CHEWABLE 81 MG TABLET. PO SCH (10:45)
[2021-08-23] MEDS: ZINC SULFATE 220 MG CAPSULE. PO SCH ×2 (10:45→10:54)
[2021-08-23] MEDS: DOXYCYCLINE HYCLATE 100 MG in IV DEXTROSE 5% 100ML 100 ML IV SCH ×2 (10:45→22:23)
[2021-08-23] MEDS: ASCORBIC ACID 1,000 MG TABLET PO SCH (10:46)
[2021-08-23] MEDS: ENOXAPARIN 40 MG/0.4 ML SYRINGE. SQ SCH (10:46)
[2021-08-23] MEDS: LACTOBACILLUS RHAMNOSUS GG 1 CAPSULE. PO SCH ×2 (10:46→22:17)
[2021-08-23] MEDS: DEXAMETHASONE SOD PHOS 4 MG/ML VIAL IVP SCH (10:55)
[2021-08-23] MEDS: BENZONATATE 100 MG CAPSULE. PO SCH ×3 (10:55→22:17)
[2021-08-23] MEDS: IV NORMAL SALINE 1000ML BAG 1,000 ML IV SCH ×2 (10:56→22:17)
[2021-08-23] MEDS: oxyCODONE/APAP 5/325 1 TAB TABLET PO PRN ×2 (10:58→22:17)
[2021-08-23 11:00] VITALS: BP 172/102
[2021-08-23 15:00] VITALS: BP 162/90
[2021-08-23 19:00] VITALS: BP 168/100
[2021-08-23] MEDS: cefTRIAXone IV Push 1 GM VIAL. IVP SCH (20:00)
[2021-08-23 23:33] VITALS: BP 167/108
[2021-08-24 03:36] VITALS: BP 156/86
[2021-08-24] MEDS: IV NORMAL SALINE 1000ML BAG 1,000 ML IV SCH ×2 (05:27→15:00)
[2021-08-24 07:00] VITALS: BP 183/111
[2021-08-24] MEDS: BENZONATATE 100 MG CAPSULE. PO SCH ×3 (10:13→21:24)
[2021-08-24] MEDS: ASCORBIC ACID 1,000 MG TABLET PO SCH (10:13)
[2021-08-24] MEDS: LACTOBACILLUS RHAMNOSUS GG 1 CAPSULE. PO SCH ×2 (10:14→21:24)
[2021-08-24] MEDS: ASPIRIN CHEWABLE 81 MG TABLET. PO SCH (10:14)
[2021-08-24] MEDS: DEXAMETHASONE SOD PHOS 4 MG/ML VIAL IVP SCH (10:15)
[2021-08-24] MEDS: DOXYCYCLINE HYCLATE 100 MG in IV DEXTROSE 5% 100ML 100 ML IV SCH ×2 (10:15→21:24)
[2021-08-24] MEDS: ENOXAPARIN 40 MG/0.4 ML SYRINGE. SQ SCH (10:16)
[2021-08-24 11:00] VITALS: BP 166/109
--- NOTE | 2021-08-24 11:49 | NUR ---
SW following. Discussed with RN, pt from home with ( also currently admitted), 4L (does not use oxygen at home), regular diet, COVID-19 positive. Pt desats when ambulates. RN advised no SW needs at this time. SW will continue to follow.
--- NOTE | 2021-08-24 11:51 | PDOC ---
[employer] PROGRESS NOTE Date of Service DOS: DATE: 08/24/21 TIME: 11:50 Chief Complaint Chief Complaint acute hypoxic Respiratory failure. was outside 10 days for remdesivir on admit acute COVID-19 infection with weakness, and cough obese, BMI 38 sepsis, pneumonia, rocpehin and doxy, change from solumedrol to decadron today History of Present Illness History of Present Illness cont covid protocol, she is german speakign and didnt understand to ask for the robitussin/codeine, plan discussed, added anti-tussive x1, asked her to sit in chair and ambulate in room may be able to DCsoon 12, still marked cough, weakness, her boyfriend (or , not same last name) is upstairs admitted same dx cont other, discussed with RN, more cough meds german language barrier wirh care Vitals/I&O Vitals/I&O: Vital Signs Date Time Temp Pulse Resp B/P (MAP) Pulse Ox O2 Delivery O2 Flow Rate FiO2 08/24/21 10:14 91 183/111 08/24/21 07:00 97.3 18 94 Nasal Cannula 5.0 97.3 I & O 08/23/21 08/23/21 08/24/21 15:00 23:00 07:00 Intake Total 480 ml 2410 ml Balance 480 ml 2410 ml Physical Exam General: Alert, Oriented X3, Cooperative, mild distress Heart: Normal S1 Lungs: Clear, Other (low vol, cough) Abdomen: Normal bowel sounds Extremities: No clubbing, No cyanosis Skin: No rashes Assessment and Plan Assessmemt and Plan Problems Medical Problems: (1) Acute respiratory failure with hypoxia Status: Acute (2) Cough Status: Acute (3) Sepsis due to pneumonia Status: Acute Comment Review of Relevant I have reviewed the following items alta (where applicable) has been applied. Medications: Current Medications Medications (Trade) Dose Ordered Sig/Gina Route PRN Reason Start Time Stop Time Status Last Admin Dose Admin Amlodipine Besylate (Norvasc) 5 mg 1X ONCE PO 08/23/21 13:30 08/23/21 13:31 DC 08/23/21 13:43 Amlodipine Besylate (Norvasc) 2.5 mg DAILY PO 08/24/21 09:00 08/24/21 10:14 Justifications for Admission Other Justification BRADLY HOWARD MD Aug 24, 2021 11:51
[2021-08-24] MEDS: guaiFENesin/CODEINE 100mg/10mg 5 ML LIQUID PO PRN ×2 (11:52→21:24)
[2021-08-24 12:58] LABS: HEMATOCRIT 36.4 % (36.0-47.0); HEMOGLOBIN 11.5 g/dL (12.0-15.5); RED BLOOD COUNT 4.98 x10^6/uL (3.50-5.40); RED CELL DISTRIBUTION WIDTH 18.3 % (11.5-14.5)
[2021-08-24 13:17] LABS: ALBUMIN 2.2 g/dL (3.4-5.0); ALBUMIN/GLOBULIN RATIO 0.5 (1.0-1.7); CALCIUM 7.9 mg/dL (8.5-10.1); CREATININE 0.8 mg/dL (0.6-1.0); GFR 77.9; POTASSIUM 3.4 mmol/L (3.5-5.1); TOTAL BILIRUBIN 0.5 mg/dL (0.2-1.0); TOTAL PROTEIN 6.7 g/dL (6.4-8.2)
[2021-08-24 15:00] VITALS: BP 148/97
[2021-08-24 19:00] VITALS: BP 176/117
[2021-08-24] MEDS: cefTRIAXone IV Push 1 GM VIAL. IVP SCH (21:24)
[2021-08-24 23:00] VITALS: BP 178/109
[2021-08-25 03:00] VITALS: BP 170/110
[2021-08-25] MEDS: IV NORMAL SALINE 1000ML BAG 1,000 ML IV SCH ×2 (04:31→11:00)
[2021-08-25 07:00] VITALS: BP 166/93
[2021-08-25] MEDS: ASPIRIN CHEWABLE 81 MG TABLET. PO SCH (09:30)
[2021-08-25] MEDS: ASCORBIC ACID 1,000 MG TABLET PO SCH (09:31)
[2021-08-25] MEDS: DOXYCYCLINE HYCLATE 100 MG in IV DEXTROSE 5% 100ML 100 ML IV SCH (09:31)
[2021-08-25] MEDS: ZINC SULFATE 220 MG CAPSULE. PO SCH (09:31)
[2021-08-25] MEDS: LACTOBACILLUS RHAMNOSUS GG 1 CAPSULE. PO SCH (09:31)
[2021-08-25] MEDS: BENZONATATE 100 MG CAPSULE. PO SCH ×2 (09:32→13:18)
[2021-08-25] MEDS: ENOXAPARIN 40 MG/0.4 ML SYRINGE. SQ SCH (09:32)
[2021-08-25] MEDS: DEXAMETHASONE SOD PHOS 4 MG/ML VIAL IVP SCH (09:33)
[2021-08-25 11:00] VITALS: BP 152/80
[2021-08-25] MEDS ORDERED: METOPROLOL SUCC 24HR ER 25 MG TAB.ER.24H. PO ONE (13:00)
[2021-08-25] MEDS ORDERED: PRED-220 PO (14:10)
--- NOTE | 2021-08-25 14:20 | PDOC ---
PULMONARY PROGRESS NOTES DATE: 08/25/21 TIME: 14:18 Vitals Vital Signs Date Time Temp Pulse Resp B/P (MAP) Pulse Ox O2 Delivery O2 Flow Rate FiO2 08/25/21 13:18 80 170/110 08/25/21 07:00 97.7 18 90 Nasal Cannula 5.0 97.7 Lungs: Clear, Other (low vol, cough) Labs Laboratory Tests Test 08/24/21 12:40 White Blood Count 13.0 x10^3/uL (4.0-11.0) Red Blood Count 4.98 x10^6/uL (3.50-5.40) Hemoglobin 11.5 g/dL (12.0-15.5) Hematocrit 36.4 % (36.0-47.0) Mean Corpuscular Volume 73 fL (79-100) Mean Corpuscular Hemoglobin 23 pg (25-35) Mean Corpuscular Hemoglobin Concent 32 g/dL (31-37) Red Cell Distribution Width 18.3 % (11.5-14.5) Platelet Count 316 x10^3/uL (140-400) Sodium Level 143 mmol/L (136-145) Potassium Level 3.4 mmol/L (3.5-5.1) Chloride Level 107 mmol/L (98-107) Carbon Dioxide Level 27 mmol/L (21-32) Anion Gap 9 (6-14) Blood Urea Nitrogen 21 mg/dL (7-20) Creatinine 0.8 mg/dL (0.6-1.0) Estimated GFR (Cockcroft-Gault) 77.9 BUN/Creatinine Ratio 26 (6-20) Glucose Level 142 mg/dL (70-99) Calcium Level 7.9 mg/dL (8.5-10.1) Total Bilirubin 0.5 mg/dL (0.2-1.0) Aspartate Amino Transf (AST/SGOT) 34 U/L (15-37) Alanine Aminotransferase (ALT/SGPT) 27 U/L (14-59) Alkaline Phosphatase 83 U/L (46-116) Total Protein 6.7 g/dL (6.4-8.2) Albumin 2.2 g/dL (3.4-5.0) Albumin/Globulin Ratio 0.5 (1.0-1.7) Medications Active Scripts Medications Dose Route/Sig Max Daily Dose Days Date Category Ibuprofen 200 Mg Tablet 400 Mg PO PRN Q6HRS PRN 08/21/21 Reported Tylenol (Acetaminophen) 325 Mg Tablet 650 Mg PO PRN Q4HRS PRN 08/21/21 Reported Impression . FULL NOTE DICTATED OK TO DC FOLLOW UP WITH ME IN SEP D/W DAX CHILEL MD Aug 25, 2021 14:20
[2021-08-25] MEDS ORDERED: DOXY100C3 PO (14:21)
[2021-08-25] MEDS ORDERED: AMLO-186 PO (14:21)
[2021-08-25] MEDS ORDERED: GUAI120L35 PO (14:24)
[2021-08-25] MEDS ORDERED: ASPI-630 PO (14:24)
[2021-08-25] MEDS ORDERED: BENZ-8 PO (14:24)
--- NOTE | 2021-08-25 14:27 | PDOC3 ---
Discharge Summary Visit Information Date of Admission: Aug 21, 2021 Date of Discharge: Aug 25, 2021 Final Diagnosis acute hypoxic Respiratory failure. was outside 10 days for remdesivir on admit acute COVID-19 infection with weakness, and cough obese, BMI 38 sepsis, pneumonia, rocpehin and doxy, change from solumedrol to decadron today Problems Medical Problems: (1) Acute respiratory failure with hypoxia Status: Acute (2) Cough Status: Acute (3) Sepsis due to pneumonia Status: Acute Brief Hospital Course Allergies Allergies Coded Allergies Type Severity Reaction Last Updated Verified Penicillins Allergy Intermediate Unknown 05/23/18 Yes Vital Signs Vital Signs Date Time Temp Pulse Resp B/P (MAP) Pulse Ox O2 Delivery O2 Flow Rate FiO2 08/25/21 13:18 80 170/110 08/25/21 07:00 97.7 18 90 Nasal Cannula 5.0 97.7 Lab Results Laboratory Tests Test 08/24/21 12:40 White Blood Count 13.0 x10^3/uL (4.0-11.0) Red Blood Count 4.98 x10^6/uL (3.50-5.40) Hemoglobin 11.5 g/dL (12.0-15.5) Hematocrit 36.4 % (36.0-47.0) Mean Corpuscular Volume 73 fL (79-100) Mean Corpuscular Hemoglobin 23 pg (25-35) Mean Corpuscular Hemoglobin Concent 32 g/dL (31-37) Red Cell Distribution Width 18.3 % (11.5-14.5) Platelet Count 316 x10^3/uL (140-400) Sodium Level 143 mmol/L (136-145) Potassium Level 3.4 mmol/L (3.5-5.1) Chloride Level 107 mmol/L (98-107) Carbon Dioxide Level 27 mmol/L (21-32) Anion Gap 9 (6-14) Blood Urea Nitrogen 21 mg/dL (7-20) Creatinine 0.8 mg/dL (0.6-1.0) Estimated GFR (Cockcroft-Gault) 77.9 BUN/Creatinine Ratio 26 (6-20) Glucose Level 142 mg/dL (70-99) Calcium Level 7.9 mg/dL (8.5-10.1) Total Bilirubin 0.5 mg/dL (0.2-1.0) Aspartate Amino Transf (AST/SGOT) 34 U/L (15-37) Alanine Aminotransferase (ALT/SGPT) 27 U/L (14-59) Alkaline Phosphatase 83 U/L (46-116) Total Protein 6.7 g/dL (6.4-8.2) Albumin 2.2 g/dL (3.4-5.0) Albumin/Globulin Ratio 0.5 (1.0-1.7) Brief Hospital Course Ms. Moreno is a 45 old adtmit with cough, COVID, was 10 days out form dx, too late for remdesivir cough better with robitussin/codeine, plan discussed, a better, stronger Discharge Information Condition at Discharge: Improved Follow Up: Weeks Disposition/Orders: D/C to Home w/ HH Scheduled Amlodipine Besylate (Amlodipine Besylate) 5 Mg Tablet, 5 MG PO DAILY for hypertension for 30 Days, #30 Ref 2 Prescribed by: BRADLY HOWARD on 08/25/21 1421 Aspirin (Aspirin) 81 Mg Tab.chew, 81 MG PO DAILYWBKFT for prevent DVT, #100 Prescribed by: BRADLY HOWARD on 08/25/21 1424 Benzonatate (Benzonatate) 100 Mg Capsule, 100 MG PO BID for cough, #20 Prescribed by: BRADLY HOWARD on 08/25/21 1424 Doxycycline Hyclate (Doxycycline Hyclate) 100 Mg Capsule, 1 CAP PO BID for COVID, #14 Prescribed by: BRADLY HOWARD on 08/25/21 1421 Prednisone (Prednisone ) 10 Mg Tablet, 10 MG PO UD for COVID, #40 Ref 0 Take 5 tablets by mouth daily for 4 days, then take 4 tablets by mouth daily for 2 days, then take 3 tablets by mouth daily for 2 days, then take 2 tablets by mouth daily for 2 days, then take 1 tablets by mouth daily for 2 days, then stop. Prescribed by: BRADLY HOWARD on 08/25/21 1410 Scheduled PRN Acetaminophen (Tylenol) 325 Mg Tablet, 650 MG PO PRN Q4HRS PRN for MILD PAIN / TEMP > 100.3'F, (Reported) Entered as Reported by: TAMRA GORDON on 08/21/212349 Last Action: New Order on 08/21/212349 by TAMRA GORDON Guaifenesin/Codeine Phosphate (Codeine-Guaifen 10-100 mg/5 ml) 120 Ml Liquid, 5 ML PO PRN Q6HRS PRN for COUGH, #80 Prescribed by: BRADLY HOWARD on 08/25/21 1426 Ibuprofen (Ibuprofen) 200 Mg Tablet, 400 MG PO PRN Q6HRS PRN for INFLAMMATION, (Reported) Entered as Reported by: TAMRA GORDON on 08/21/212349 Last Action: New Order on 08/21/212349 by TAMRA GORDON Patient Instructions Patient Instructions face to face 32 min 6 min walk oxygen at home Justicifation of Admission Dx: Justifications for Admission: Justification of Admission Dx: Yes BRADLY HOWARD MD Aug 25, 2021 14:27
[2021-08-25] MEDS ORDERED: POTASSIUM CHLORIDE 20 MEQ TABLET.ER. PO ONE (14:30)
[2021-08-25 15:00] VITALS: BP 147/100
--- NOTE | 2021-08-25 15:46 | CONS ---
DATE OF CONSULTATION: 08/25/2021 ATTENDING PHYSICIAN: Bettye Narvaez DO CONSULTING PHYSICIAN: Len Costa MD REASON FOR CONSULTATION: The patient is seen in pulmonary consultation at the request of Dr. Hudson for possible discharge, COVID-19 viral pneumonia, hypoxemia and respiratory failure. HISTORY OF PRESENT ILLNESS: The patient is a 45-year-old that presented several days ago with increasing shortness of breath. She had upper respiratory symptoms approximately 10 days prior to admission. She and her boyfriend was likewise sick. She had a CT angiogram upon admission, which revealed no evidence of pulmonary embolism, compatible with viral pneumonia. Her COVID-19 [id number] testing was positive. She has been in the hospital for several days now. Dr. Hudson asked see her in consult to make certain that it was safe for her to discharge. The patient states that when she moves about, she does not feel dizzy. She has had no syncopal episode, no chest pain, no pressure. PAST MEDICAL HISTORY: Tobacco use. ALLERGIES: PENICILLIN. FAMILY HISTORY: Diabetes. SOCIAL HISTORY: She denies any tobacco or alcohol. Lives with her boyfriend. REVIEW OF SYSTEMS: As indicated above, otherwise a 10-point system was reviewed and negative. PHYSICAL EXAMINATION: VITAL SIGNS: Stable. O2 saturation was greater than 92%, currently on 5 liters. HEENT: Eyes: The sclerae were nonicteric. NECK: Jugular venous distention was not elevated. No lymphadenopathy. CHEST: Full expansion. LUNGS: Adequate flow with no wheezes. CARDIOVASCULAR: Regular rate and rhythm with S1, S2, no S3. ABDOMEN: Soft. EXTREMITIES: No clubbing, cyanosis or edema. LABORATORY DATA: Reviewed. SARS-CoV-2 nucleic amplification test was positive. Beta hCG was negative. Electrolytes were noted. Arterial blood gas upon admission, pO2 was 65. CT chest reviewed. Chest x-ray reviewed. IMPRESSION: Acute hypoxemic respiratory failure secondary to COVID-19 viral pneumonia, the patient currently requiring 5 liters of oxygen supplementation. PLAN: 1. Discussed with Dr. Hudson, discharge home after a 6-minute walk, complete 10-day course of steroids. 2. Follow up with me in September to reassess need for oxygen supplementation. GARRET DR: Love TID: [id number]
--- NOTE | 2021-08-25 16:48 | NUR ---
[place] following. Discussed with RN, pt completed 6 minute walk needing 2L at rest and with exertion. Referral faxed to [employer], approval to give tank. Tank provided to RN, RN notified. [place] notified Dr. Hudson that pt would not be able to have home health due to Medicaid insurance. Discharge home today.
--- NOTE | 2021-08-25 19:30 | NUR ---
DISCHARGE INSTRUCTIONS GIVEN, QUESTIONS AND CONCERNS ANSWERED, PATIENT VERBALIZED UNDERSTANDING OF DISCHARGE INFORMATION INCLUDING TAKING ALL MEDICATIONS INSTRUCTED AND FOLLOWING UP WITH HER PRIMARY PROVIDER, AND DR SHIRLEY INSTRUCTED. 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 PATIENT PRESENTED WITH A OXYGEN TANK FOR HOME USE HER SIX MIN. WALK INDICATED, INSTRUCTIONS GIVEN TO PATIENT VIA THE SALES [employer]END[employer] PHONE. ALL PERSONAL BELONGINGS GATHERED BY THE PATIENT AND PLACED IN BAGS FOR DISCHARGE.
--- NOTE | 2021-08-25 19:40 | NUR ---
PATIENT LEAVES THE UNIT PER W/C AND ACCOMPANIED BY THIS HOG TENDER, EMOTIONAL SUPPORT GIVEN, FOLLOW UP APPOINTMENTS ENCOURAGED.
[2021-08-26] MEDS ORDERED: METOPROLOL SUCC 24HR ER 25 MG TAB.ER.24H. PO SCH (09:00)
== END 2021-08-25 19:35 | disposition home or self-care (01) | DRG 871 ==
LOC: ER 12:30 → 5 NORTH 15:40
PROVIDERS: ADMIT Internal Medicine; ATTEND Internal Medicine
DX: A41.89 Other specified sepsis (principal); U07.1 COVID-19; J96.01 Acute respiratory failure with hypoxia; J12.82 Pneumonia due to coronavirus disease 2019; F17.200 Nicotine dependence, unspecified, uncomplicated
CPT/HCPCS: 36415; 36600; 71045; 71275; 80048; 80053; 82805; 83605; 83880; 84484; 84702; 85007; 85025; 85027; 85610; 85730; 87040; 87426; 87804; 90471; 90686; 93005; 94618; 96365; 96372; 96375; J0456; J0696; J1100; J1650; J2920; J3490; J7030; J7060; Q9967; U0003; U0005; 99285-25; G0378

== ENCOUNTER → 2021-11-02 | Outpatient (CLI) | payer MEDICAID ==
[~2021-11-02] MED LIST changes: +ACET325T9 PO; +AMLO-186 PO; +ASPI-630 PO; +BENZ-8 PO; +DOXY100C3 PO; +GUAI120L35 PO; +IBUP200T77 PO; +PRED-220 PO
--- NOTE | 2021-11-02 09:28 | RAD ---
AP and Lateral Views of the Chest 11/02/2021 8:51 AM Indication: History of Covid pneumonia Comparison: Chest radiograph August 21, 2021 Findings: Previously seen bilateral infiltrates are resolved. The cardiomediastinal silhouette is wit hin normal limits. There is no evidence of pneumothorax or pleural effusion. No acute osseous abnorma lities are identified. Impression: 1. No evidence of acute cardiopulmonary process. 2. Radiographic resolution of the previously seen bilateral infiltrates Electronically signed by: Espinoza Catalan MD (11/02/2021 9:26 AM) [id number]
== END ==
LOC: RAD 08:41
PROVIDERS: ATTEND Internal Medicine Pulmonary Disease
DX: J18.9 Pneumonia, unspecified organism (principal); Z09 Encounter for follow-up examination after completed treatment for conditions other than malignant neoplasm; Z86.16 Personal history of COVID-19
CPT/HCPCS: 71046